=== PATIENT | female | born 1985 | race African-American/Black ===

== ENCOUNTER 2021-05-05 20:50 | Observation (INO) | payer BC ==
[~2021-05-05] VITALS: Ht 149.9 cm; Wt 85.7 kg
[2021-05-05] MEDS ORDERED: PNV1TABL5 PO (21:54)
== END 2021-05-05 22:10 | disposition home or self-care (01) ==
LOC: MLD 20:50
PROVIDERS: ADMIT Obstetrics & Gynecology; ATTEND Obstetrics & Gynecology
DX: O36.8130 Decreased fetal movements, third trimester, not applicable or unspecified (principal); Z3A.30 30 weeks gestation of pregnancy
CPT/HCPCS: 59025; 81000; G0378